=== PATIENT | female | born 1945 ===

== ENCOUNTER → 2018-10-04 | Outpatient (CLI) | payer BC | END | disposition home or self-care (01) | LOC: HKI 15:45 | DX: M13.861 Other specified arthritis, right knee (principal); M25.561 Pain in right knee | CPT/HCPCS: 73564; 73564-RT ==

== ENCOUNTER → 2018-11-18 | Outpatient (CLI) | payer MEDICARE, BC | END | disposition home or self-care (01) | LOC: HKI 13:12 | DX: M17.11 Unilateral primary osteoarthritis, right knee (principal) | CPT/HCPCS: 77073 ==